=== PATIENT | male | born 1940 | race Hispanic/Latino ===

== ENCOUNTER 2019-04-11 09:37 | Observation (INO) | payer OTHER ==
[~2019-04-11] VITALS: Ht 170.2 cm; Wt 79.4 kg
[2019-04-11] VITALS (21 sets, daily range): BP systolic 74–139; BP diastolic 37–81
[2019-04-11] MEDS ORDERED: ONDANSETRON HCL 4 MG/2 ML VIAL ONE ×2 (10:28→17:43)
[2019-04-11] MEDS ORDERED: MORPHINE SULFATE 4 MG/1ML SYG ONE ×3 (10:29→16:25)
[2019-04-11 10:37] LABS: BASOPHILS % (AUTO) 0.9 % (0.0-5.0); EOSINOPHILS % (AUTO) 0.1 % (0.0-8.0); HEMATOCRIT 41.5 % (42-54); LYMPHOCYTES % (AUTO) 5.6 % (21.0-51.0); MEAN CORPUSCULAR HEMOGLOBIN 28.8 pg (27.0-33.0); MEAN CORPUSCULAR HGB CONC 33.2 g/dL (32.0-36.0); MEAN CORPUSCULAR VOLUME 86.6 fL (79-99); NEUTROPHILS % (AUTO) 88.4 % (40.0-77.0); PLATELET COUNT (AUTO) 217 K/uL (130-400); RED BLOOD CELL COUNT(AUTO) 4.79 MIL/uL (4.50-6.20); RED CELL DISTRIBUTION WIDTH 15.7 % (11.0-15.5); WHITE BLOOD COUNT (AUTO) 13.1 K/uL (4.8-10.8)
[2019-04-11 10:50] LABS: POTASSIUM 3.6 mmol/L (3.5-5.1)
[2019-04-11 10:55] LABS: BILIRUBIN,TOTAL 0.8 mg/dL (0.2-1.0); TOTAL PROTEIN, SERUM 6.9 g/dL (6.0-8.3)
[2019-04-11] MEDS ORDERED: MORPHINE SULFATE 4 MG/1ML SYG IVP PRN (15:30)
[2019-04-11] MEDS ORDERED: HYDRALAZINE HCL 20 MG/ML VIAL IV PRN (15:30)
[2019-04-11] MEDS ORDERED: MORPHINE SULFATE 2 MG/ML 1ML SYG IVP PRN (15:30)
[2019-04-11] MEDS ORDERED: ACETAMINOPHEN 325 MG TAB PO PRN (15:30)
[2019-04-11 17:36] LABS: INR 0.96 (0.85-1.15); PARTIAL THROMBOPLASTIN TIME 21.9 SEC (26.3-35.5); PROTHROMBIN TIME 10.1 SEC (9.6-11.6)
[2019-04-11] MEDS ORDERED: NEOSTIGMINE 5MG/5ML SYR IV ONE (17:43)
[2019-04-11] MEDS ORDERED: DEXAMETHASONE SOD PHOSPHATE 10MG/ML 1ML VIAL ONE (17:43)
[2019-04-11] MEDS ORDERED: LIDOCAINE PF 2% 5ML ABBOJECT ONE (17:43)
[2019-04-11] MEDS ORDERED: SUCCINYLCHOLINE 200MG/10ML SYR ONE (17:43)
[2019-04-11] MEDS ORDERED: MIDAZOLAM HCL 1 MG/ML 2ML VIAL ONE (17:43)
[2019-04-11] MEDS ORDERED: GLYCOPYRROLATE 1 MG/5 ML SYRINGE ONE (17:43)
[2019-04-11] MEDS ORDERED: FENTANYL CITRATE PF 50 MCG/1 ML 2ML VIAL ONE (17:44)
[2019-04-11] MEDS ORDERED: ROCURONIUM 10MG/1ML SYR 10 MG/ML ML ONE (17:44)
[2019-04-11] MEDS ORDERED: PROPOFOL 10 MG/ML 20ML VIAL IV ONE (17:44)
[2019-04-11] MEDS ORDERED: LACTATED RINGERS 1000ML 1,000 ML IV ONE (17:56)
[2019-04-11] MEDS: CEFTRIAXONE SODIUM 1 GM IVP SCH (17:59)
--- NOTE | 2019-04-11 20:30 | NUR ---
post op received patient from pacu via bed, patient awake, alert, ox3, no sob, no c/o pain at this time, f/c gauge [address] draining bloody urine with small clots, no obstruction notice, abdomen soft upon palpation, ivf infusing well
[2019-04-11] MEDS ORDERED: ONDANSETRON HCL 4 MG/2 ML VIAL IVP PRN (21:30)
[2019-04-11] MEDS: LACTATED RINGERS 1000ML 1,000 ML IV SCH (21:30)
[2019-04-11] MEDS ORDERED: HYDROCODONE/ACETAMINOPHEN 5/325 MG TAB PO PRN (21:30)
[2019-04-11] MEDS: FAMOTIDINE/PF 20 MG/2 ML VIAL IV SCH (22:51)
[2019-04-11] MEDS: BACITRACIN 28.4 GM OINT TP SCH (22:51)
[2019-04-12 00:30] VITALS: BP 112/71
[2019-04-12 01:30] VITALS: BP 108/71
[2019-04-12 04:00] VITALS: BP 95/61
--- NOTE | 2019-04-12 04:00 | NUR ---
f/c continue with bloody output, no clots seen, f/.c to gravity no obstruction seen, ivf infusing well, call florez at reach
[2019-04-12 04:41] LABS: HEMATOCRIT 38.1 % (42-54); MEAN CORPUSCULAR HGB CONC 32.4 g/dL (32.0-36.0); MEAN CORPUSCULAR VOLUME 86.5 fL (79-99); PLATELET COUNT (AUTO) 221 K/uL (130-400); RED BLOOD CELL COUNT(AUTO) 4.41 MIL/uL (4.50-6.20); RED CELL DISTRIBUTION WIDTH 15.9 % (11.0-15.5)
[2019-04-12 04:55] LABS: CREATININE 1.3 mg/dL (0.5-1.5); POTASSIUM 4.6 mmol/L (3.5-5.1)
[2019-04-12 07:30] VITALS: BP 92/55
[2019-04-12 09:39] LABS: APPEARANCE,URINE CLOUDY (CLEAR); BILIRUBIN,URINE NEGATIVE (NEGATIVE); COLOR,URINE RED (YELLOW); GLUCOSE, URINE (UA) 100 mg/dL (NEGATIVE); KETONES,URINE 15 mg/dL (NEGATIVE); LEUKOCYTE ESTERASE ,URINE MODERATE (NEGATIVE); NITRATE,URINE POSITIVE (NEGATIVE); OCCULT BLOOD,URINE LARGE (NEGATIVE); PROTEIN,URINE >=300 mg/dL (NEGATIVE)
[2019-04-12 09:46] LABS: RBC,URINE TNTC /HPF (0-1)
[2019-04-12 09:47] LABS: BACTERIA,URINE Few /HPF (None Seen); SQUAMOUS EPITHELIAL CELL,UR Few /HPF (0-2); WBC,URINE 26-50 /HPF (0-1)
[2019-04-12] MEDS: FAMOTIDINE/PF 20 MG/2 ML VIAL IV SCH (10:07)
[2019-04-12] MEDS: BACITRACIN 28.4 GM OINT TP SCH (10:07)
[2019-04-12] MEDS: LACTATED RINGERS 1000ML 1,000 ML IV SCH (10:07)
[2019-04-12 11:00] VITALS: BP 104/60
--- NOTE | 2019-04-12 15:00 | NUR ---
INITIAL MET W PATIENT- AAOX3, W CATHETER FOR URINARY OBSTRUCTION, STATES WANTS TO GO HOME. PT IS VERY UPSET STATES IS [employer] C[employer] FOR [employer], BEDBOUND- NEEDS TO GO HOME TO LOOK AFTER , STATES IS MOBILE AND INDP NEED NO DME, HAS RAMP AT HOUSE FOR SPOUSE. STATES MICHELLE NORIEGA AND KAL OCONNOR ARE COMING FROM [facility] TO SEE THE SITUATION. ASKS WHY HASNT THE MD COME TO SEE HIM, DR. HUMPHRIES STATED HE COULD GO ALREADY. SPOKE TO TEE SIMON, NO ORDER YET FOR DC, CLOTS IN PEREZ, WBC HIGHER THAN YESTERDAY, CULTURES COOKING. ADVISED PT MAY NEED TO WAIT FOR AM. PT UNHAPPY . Addendum: 04/12/19 at 1646 by ZHANG LANGLEY RN CM Amended: Links added.
[2019-04-12 16:00] VITALS: BP 110/62
[2019-04-12] MEDS: CEFTRIAXONE SODIUM 1 GM IVP SCH (16:43)
== END 2019-04-12 17:30 | disposition home or self-care (01) ==
LOC: EDH 09:37 → EDHIP 14:15 → 4BH 20:15
PROVIDERS: ADMIT Internal Medicine; ATTEND Internal Medicine
DX: N35.919 Unspecified urethral stricture, male, unspecified site (principal); R33.9 Retention of urine, unspecified; N32.0 Bladder-neck obstruction; N40.0 Benign prostatic hyperplasia without lower urinary tract symptoms; I10 Essential (primary) hypertension; F41.9 Anxiety disorder, unspecified; E78.5 Hyperlipidemia, unspecified; Z87.891 Personal history of nicotine dependence
CPT/HCPCS: 36415 ×2; 52601; 74176; 80048; 80053; 81001; 84153; 85025; 85027; 85610; 85730; 96374; 96375; 96376; 99284; A4354; A4358; A4930; C1758 ×2; C1769; G0378 ×26; J0330; J0696 ×2; J1100; J2001; J2250; J2270 ×3; J2405 ×2; J2704; J2710; J3010; J3490 ×3; J7120 ×4

== ENCOUNTER 2019-04-20 19:22 | Observation (INO) | payer OTHER ==
[~2019-04-20] VITALS: Ht 167.6 cm; Wt 71.1 kg
[2019-04-20 20:14] LABS: BASOPHILS % (AUTO) 0.8 % (0.0-5.0); EOSINOPHILS % (AUTO) 2.1 % (0.0-8.0); HEMATOCRIT 37.9 % (42-54); LYMPHOCYTES % (AUTO) 11.1 % (21.0-51.0); MEAN CORPUSCULAR HEMOGLOBIN 28.7 pg (27.0-33.0); MEAN CORPUSCULAR HGB CONC 33.3 g/dL (32.0-36.0); MEAN CORPUSCULAR VOLUME 86.2 fL (79-99); MONOCYTES % (AUTO) 11.8 % (3.0-13.0); NEUTROPHILS % (AUTO) 74.2 % (40.0-77.0); PLATELET COUNT (AUTO) 241 K/uL (130-400); RED CELL DISTRIBUTION WIDTH 15.6 % (11.0-15.5); WHITE BLOOD COUNT (AUTO) 8.1 K/uL (4.8-10.8)
[2019-04-20 20:36] LABS: CREATININE 1.1 mg/dL (0.5-1.5); POTASSIUM 3.5 mmol/L (3.5-5.1)
[2019-04-20 20:40] LABS: ALBUMIN 3.4 g/dL (3.5-5.0); BILIRUBIN,TOTAL 0.5 mg/dL (0.2-1.0); TOTAL PROTEIN, SERUM 6.4 g/dL (6.0-8.3)
[2019-04-20 20:56] LABS: INR 0.96 (0.85-1.15); PROTHROMBIN TIME 10.1 SEC (9.6-11.6)
[2019-04-20] MEDS ORDERED: TRAMADOL HCL 50 MG TABLET ONE (21:34)
[2019-04-20 21:35] LABS: APPEARANCE,URINE CLOUDY (CLEAR); BILIRUBIN,URINE NEGATIVE (NEGATIVE); GLUCOSE, URINE (UA) NEGATIVE (NEGATIVE); KETONES,URINE 5 mg/dL (NEGATIVE); LEUKOCYTE ESTERASE ,URINE MODERATE (NEGATIVE); NITRATE,URINE POSITIVE (NEGATIVE); OCCULT BLOOD,URINE LARGE (NEGATIVE); PH,URINE 6.5 (5.0-8.0); PROTEIN,URINE >=300 mg/dL (NEGATIVE)
[2019-04-20 21:41] LABS: COLOR,URINE RED (YELLOW)
[2019-04-20 21:43] LABS: BACTERIA,URINE Few /HPF (None Seen); RBC,URINE Full Field /HPF (0-1); SQUAMOUS EPITHELIAL CELL,UR None Seen /HPF (0-2)
[2019-04-20] MEDS ORDERED: LEVOFLOXACIN 500 MG/D5W 100 ML 100 ML ONE (21:51)
[2019-04-20] MEDS ORDERED: SODIUM CHLORIDE 0.9% 1000ML 1,000 ML IV ONE (21:51)
[2019-04-20] MEDS ORDERED: KETOROLAC TROMETHAMINE 15MG/ML ONE (23:15)
[2019-04-20] MEDS ORDERED: ONDANSETRON HCL 4 MG/2 ML VIAL ONE (23:34)
[2019-04-20] MEDS ORDERED: LORAZEPAM 2 MG/ML 1 ML VIAL ONE (23:35)
[2019-04-20] MEDS ORDERED: MORPHINE SULFATE 2 MG/ML 1ML SYG ONE (23:35)
[2019-04-21] MEDS ORDERED: SODIUM CHLORIDE 0.9% 1000ML 1,000 ML IV SCH (00:30)
[2019-04-21] MEDS ORDERED: MORPHINE SULFATE 2 MG/ML 1ML SYG IVP PRN (00:30)
[2019-04-21] MEDS ORDERED: LORAZEPAM 2 MG/ML 1 ML VIAL IVP PRN (00:30)
[2019-04-21] MEDS ORDERED: ONDANSETRON HCL 4 MG/2 ML VIAL IVP PRN (00:30)
[2019-04-21 02:15] VITALS: BP 104/64
[2019-04-21 04:00] VITALS: BP 116/63
[2019-04-21 05:47] LABS: HEMATOCRIT 33.5 % (42-54); MEAN CORPUSCULAR HEMOGLOBIN 28.3 pg (27.0-33.0); MEAN CORPUSCULAR HGB CONC 32.8 g/dL (32.0-36.0); MEAN CORPUSCULAR VOLUME 86.3 fL (79-99); PLATELET COUNT (AUTO) 245 K/uL (130-400); RED BLOOD CELL COUNT(AUTO) 3.89 MIL/uL (4.50-6.20); RED CELL DISTRIBUTION WIDTH 15.6 % (11.0-15.5); WHITE BLOOD COUNT (AUTO) 12.6 K/uL (4.8-10.8)
[2019-04-21 06:09] LABS: CREATININE 1.1 mg/dL (0.5-1.5); POTASSIUM 4.3 mmol/L (3.5-5.1)
[2019-04-21 07:00] VITALS: BP 108/63
--- NOTE | 2019-04-21 08:00 | NUR ---
AM ROUNDS: 3-WAY PEREZ CATH. IN PLACE WITH CBI, OUTPUT BLOODY TINGED. NO DISCOMFORT AT THIS TIME.
[2019-04-21] MEDS ORDERED: LEVOFLOXACIN 500 MG/D5W 100 ML 100 ML IV SCH (09:00)
[2019-04-21 11:00] VITALS: BP 130/91
[2019-04-21] MEDS ORDERED: LORA10TA7 PO (11:26)
[2019-04-21] MEDS ORDERED: TAMSULOSIN PO (11:26)
[2019-04-21] MEDS ORDERED: LORA1TAB3 PO (11:26)
[2019-04-21] MEDS ORDERED: ROSU20TA31 PO (11:26)
[2019-04-21] MEDS ORDERED: LISI1TAB11 PO (11:26)
[2019-04-21] MEDS ORDERED: OMEPRAZOLE PO (11:29)
--- NOTE | 2019-04-21 11:33 | NUR ---
DR. HUMPHRIES CONSULT CONSULT CALLED IN, DRY TRANSFER MAN, TOOK MESSAGE AND WILL PASS ON TO DR. HUMPHRIES.
--- NOTE | 2019-04-21 13:30 | NUR ---
DR HUMPHRIES CALLED AND GAVE DC ORDERS, STATED PT. SHOULD HAVE NEVER BEEN ADMITTED, ONCE FC PLACED COULD HAVE GONE HOME WITH CATH. IN PLACE.
[2019-04-21 16:00] VITALS: BP 98/49
--- NOTE | 2019-04-21 18:15 | NUR ---
DISCHARGED NOW PER ORDERS OF DR. HUMPHRIES, PEREZ CATH LEFT IN PLACE, LEG BAG PROVIDED. HAS APPT TO FOLLOW UP WITH DR. HUMPHRIES ON THE . DC INST GIVEN USING TEACH BACK. DAUGHTER PRESENT AND BOTH VERBALIZED UNDERSTANDING.
== END 2019-04-21 18:40 | disposition home or self-care (01) ==
LOC: EDH 19:22 → EDHIP 22:12 → 3CH 04-21 02:03
PROVIDERS: ADMIT Internal Medicine Pulmonary Disease; ATTEND Internal Medicine Pulmonary Disease
DX: N40.1 Benign prostatic hyperplasia with lower urinary tract symptoms (principal); R33.8 Other retention of urine; E78.5 Hyperlipidemia, unspecified; I10 Essential (primary) hypertension; N32.0 Bladder-neck obstruction; R31.0 Gross hematuria; F41.9 Anxiety disorder, unspecified; Z87.891 Personal history of nicotine dependence
CPT/HCPCS: 36415 ×2; 71045; 76770; 80048; 80053; 81001; 82150; 82550; 83690; 85025; 85027; 85610; 85730; 87040 ×2; 87088; 93005; 96365; 99284; G0378 ×20; J1885; J1956 ×2; J2060; J2405; J7030